=== PATIENT | male | born 1950 | race Caucasian/White ===

== ENCOUNTER 2018-09-16 08:53 | Outpatient (CLI) | payer MEDICARE ==
[2018-09-16 13:35] LABS: #Eosinphils 0.1 thou/uL (0.0-0.7); #Lymphocytes 1.8 thou/uL (1.20-3.40); #Monocytes 0.6 thou/uL (0.11-0.59); #Neutrophils 4.1 thou/uL (1.40-6.50); %Basophils 0.7 % (0.0-1.0); %Eosinophils 2.2 % (0.0-10.0); %Lymphocytes 26.9 % (21.0-51.0); %Monocytes 8.3 % (0.0-10.0); %Neutrophils 61.9 % (42.0-75.0); Hemoglobin 14.3 g/dL (14.0-18.0); Mean Corpuscular HGB CONC 34.1 g/dL (32.0-36.0); Mean Corpuscular Hemoglobin 31.1 pg (27.0-31.0); Mean Corpuscular Volume 91.4 fL (78.0-98.0); Mean Platelet Volume 7.6 fL (7.4-10.4); Platelet Count 190 thou/uL (130-400); RBC Distribution Width 11.5 % (11.5-14.5); Red Blood Cell (RBC) Count 4.61 mill/uL (4.70-6.10); White Blood Cell (WBC) Count 6.6 thou/uL (4.8-10.8)
[2018-09-16 13:48] LABS: ALT (SGPT) 19 U/L (8-55); AST (SGOT) 21 U/L (5-34); Albumin 4.3 g/dL (3.4-4.8); Alkaline Phosphatase 45 U/L (40-150); Anion Gap 11 mmol/L (10-20); BUN (Urea Nitrogen) 17 mg/dL (8.4-25.7); Bilirubin, Total 0.6 mg/dL (0.2-1.2); Calc. Creatinine Clearance 0 mL/min (70-130); Calcium 9.1 mg/dL (7.8-10.44); Carbon Dioxide 25 mmol/L (23-31); Chloride 105 mmol/L (98-107); Estimated GFR-MDRD 70; Globulin 2.2 g/dL (2.4-3.5); Glucose 87 mg/dL (80-115); Potassium 4.3 mmol/L (3.5-5.1); Protein, Total 6.5 g/dL (5.8-8.1); Sodium 137 mmol/L (136-145)
== END 2018-09-16 08:54 | disposition home or self-care (01) ==
LOC: LABBT 08:53
PROVIDERS: ATTEND Internal Medicine Cardiovascular Disease
DX: Z01.812 Encounter for preprocedural laboratory examination (principal)
CPT/HCPCS: 80053; 85025

== ENCOUNTER → 2018-09-17 | Day surgery (SDC) | payer MEDICARE ==
[2018-09-16 12:42] VITALS: BMI 23.6
== END ==
LOC: CCL 05:58
PROVIDERS: ATTEND Internal Medicine Cardiovascular Disease
DX: R94.39 Abnormal result of other cardiovascular function study (principal); Z79.82 Long term (current) use of aspirin; Z79.899 Other long term (current) drug therapy; Z88.2 Allergy status to sulfonamides; Z88.8 Allergy status to other drugs, medicaments and biological substances; Z53.9 Procedure and treatment not carried out, unspecified reason

== ENCOUNTER 2018-09-29 05:43 | Day surgery (SDC) | payer MEDICARE ==
[2018-09-26 15:45] VITALS: BMI 23.6
[2018-09-29] MEDS ORDERED: Heparin 10,000 UNITS/1 ML VIAL ONE (06:34)
[2018-09-29 07:05] LABS: Cardiac Risk 3.6 (Less than 4.5)
[2018-09-29] MEDS ORDERED: Fentanyl 100 MCG/2 ML VIAL ONE (07:11)
[2018-09-29] MEDS ORDERED: Midazolam HCl 2 mg/2 ml Vial ONE (07:11)
--- NOTE | 2018-09-29 07:19 | RAD ---
Chest AP view INDICATION: Preoperative chest radiograph COMPARISON: None FINDINGS: Lungs:The lungs are clear Cardiac silhouette pulmonary vasculature:The cardiomediastinal silhouette appears within normal limit s. Pleural spaces:No pleural effusion or pneumothorax is demonstrated. Upper abdomen:No abnormality seen. Osseous structures: No acute osseous abnormality. IMPRESSION: No acute cardiopulmonary abnormality.
[2018-09-29] MEDS ORDERED: Protamine Sulfate 50 MG/5 ML VIAL ONE (07:28)
[2018-09-29] MEDS ORDERED: Iopamidol 370 76% 50 ML VIAL FS ONE (09:29)
[2018-09-29] MEDS ORDERED: Iopamidol 370 76% 100 ML VIAL ONE (09:29)
--- NOTE | 2018-09-30 06:32 | DIS ---
DATE OF ADMISSION: 09/29/2018 DATE OF DISCHARGE: 09/29/2018 Discharged after observation after cardiac catheterization. DIAGNOSES: 1. Minimal coronary artery disease. 2. Normal left ventricular function. 3. Hypercholesterolemia. 4. Hypertension. 5. Smoker of a few cigars per month. 6. Positive family history of father with myocardial infarction. 7. Benign prostatic hypertrophy for Green laser in the near future. 8. History of transient ischemic attack in August 2013 with left-sided paresthesias. 9. Glaucoma. DISCHARGE MEDICATIONS: He will continue his eyedrops, aspirin 81 daily, Aggrenox 25/200 b.i.d., Proscar 5 mg daily, lactobacillus acidophilus one capsule daily, lisinopril 10 mg daily, metoprolol ER 50 mg q.a.m., multivitamin q.a.m., omega-3 fish oil 500 mg two capsules daily, Paxil 20 mg one-half tablet at bedtime, rosuvastatin 20 mg daily, Viagra 100 mg p.r.n., and Flomax 0.4 mg daily. DISCHARGE DISPOSITION: Patient will be seen in 2 months with fasting lipid profile and complete metabolic panel. HOSPITAL COURSE: Mr. Bo underwent evaluation prior to a general anesthesia with history of previous TIA. He underwent treadmill testing which was positive with [address]-segment depression in multiple leads. His insurance would not allow a nuclear scan. He underwent cardiac catheterization. There was calcification in the mid LAD, 30% distal LAD lesion, 20% proximal circumflex lesion and 20% mid RCA lesion. His cholesterol is 147, triglycerides 82, HDL 41, and LDL 90, however, he had only been on rosuvastatin 20 for 2 weeks. The goal will be LDL less than 70 and this will be repeated in 2 months. Mr. Bo appears to be in acceptable cardiac risk for general anesthesia to undergo Green laser treatment of his benign prostatic hypertrophy. He will follow up with Dr. Justice. Job ID: [id number] [facility]
== END 2018-09-29 16:05 | disposition home or self-care (01) ==
LOC: CCL 05:43
PROVIDERS: ATTEND Internal Medicine Cardiovascular Disease
PROC: 4A023N7 Measurement of Cardiac Sampling and Pressure, Left Heart, Percutaneous Approach (ICD-10-PCS; principal; 2018-09-29)
PROC: B2111ZZ Fluoroscopy of Multiple Coronary Arteries using Low Osmolar Contrast (ICD-10-PCS; 2018-09-29)
DX: I25.10 Atherosclerotic heart disease of native coronary artery without angina pectoris (principal); E78.00 Pure hypercholesterolemia, unspecified; I10 Essential (primary) hypertension; E78.5 Hyperlipidemia, unspecified; F41.9 Anxiety disorder, unspecified; F17.290 Nicotine dependence, other tobacco product, uncomplicated; N40.0 Benign prostatic hyperplasia without lower urinary tract symptoms; I69.398 Other sequelae of cerebral infarction; R20.2 Paresthesia of skin; Z79.82 Long term (current) use of aspirin; Z79.899 Other long term (current) drug therapy; Z88.2 Allergy status to sulfonamides; Z88.8 Allergy status to other drugs, medicaments and biological substances
CPT/HCPCS: 36415; 71045; 80061; 85347; 93005; 93010; 93458; 99152; C1769; J1644; J2250; J2720; J3010; Q9967